=== PATIENT | female | born 1995 | race African-American/Black ===

== ENCOUNTER 2017-05-09 19:51 | Emergency (ER) | payer OTHER ==
[~2017-05-09] VITALS: Ht 165.1 cm; Wt 79.1 kg
[2017-05-09 21:39] VITALS: BP 106/54
--- NOTE | 2017-05-10 01:19 | REP ---
Clinical: Left upper chest pain . Comparison: None . Technique: PA and lateral. Findings: The mediastinum and cardiac silhouette are normal. The lung rodriguez are clear and without acute consolidation, effusion, or pneumothorax. The skeletal structures are intact and normal. Impression: 1. No acute cardiopulmonary process. Signed by Migue Avalos MD 05/10/2017 01:11 A
--- NOTE | 2017-05-10 11:24 | ECGEPIP ---
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
== END 2017-05-09 21:41 | disposition home or self-care (01) ==
LOC: M ED 19:51
DX: R07.89 Other chest pain (principal); Z79.899 Other long term (current) drug therapy; Z82.49 Family history of ischemic heart disease and other diseases of the circulatory system

== ENCOUNTER → 2017-08-15 | Outpatient (REF) | payer OTHER | LOC: M SFHCLERA 18:27 | PROVIDERS: ATTEND Physician Assistant | DX: N89.8 Other specified noninflammatory disorders of vagina (principal) | CPT/HCPCS: 87070; 87077; 87491; 87591; G0463 ==

== ENCOUNTER 2018-01-13 02:26 | Emergency (ER) | payer OTHER | END 2018-01-13 04:16 | disposition home or self-care (01) | LOC: M ED 02:26 | DX: R22.0 Localized swelling, mass and lump, head (principal); Y04.8XXA Assault by other bodily force, initial encounter; Y92.9 Unspecified place or not applicable; Y93.9 Activity, unspecified | CPT/HCPCS: 70450 ==

== ENCOUNTER 2018-05-16 04:20 | Emergency (ER) | payer OTHER | END 2018-05-16 06:30 | disposition home or self-care (01) | LOC: M ED 04:20 | DX: M54.9 Dorsalgia, unspecified (principal); M41.9 Scoliosis, unspecified | CPT/HCPCS: 99282 ==

== ENCOUNTER → 2018-08-30 | Outpatient (REF) | payer OTHER | LOC: M SFHCLERA 11:30 | DX: J02.9 Acute pharyngitis, unspecified (principal) ==